=== PATIENT | male | born 1955 | race Caucasian/White ===

== ENCOUNTER 2017-04-15 15:53 | Emergency (ER) | payer OTHER, MEDICARE ==
[~2017-04-15] VITALS: Ht 175.3 cm; Wt 120.0 kg
[~2017-04-15 15:53] MED LIST: AMARYL2 MG PO; AMITRIPTYLIN25 MG OR; ASPIRINCHW 81MG PO; BABY ASPIRIN81 MG OR; BACTRIM DS1 TAB PO; BENTYL10 MG PO; C-Q 10 PO; CIPRO500 MG PO; DICYCLOMINE10 MG PO; FLAGYL500 MG OR; ISOSORB MONO30 MG OR; ISOSORB MONO30 MG PO; LASIX 40 MG TAB40 MG PO; LEVAQUIN750 MG PO; LISINOPRIL10 MG PO; LORTAB 5/3255 MG PO; LORTAB5 PO; MEDDOSEPAK PO; METFORMIN500 M1 PO; METO50TA52 PO; PERCOCET 5/325M1 TAB OR; PLAVIX75 MG PO; POT CHLORIDE20 ME3 PO; SAW PALMETT3 PO; ZOCOR20 M1 PO; ZOCOR40 MG OR; ZOFRAN4 M1 OR; ZOFRAN4 M1 PO
[2017-04-15] MEDS ORDERED: ULTRAM50 M1 PO (17:20)
[2017-04-15 17:35] VITALS: BP 184/94
== END 2017-04-15 17:35 | disposition home or self-care (01) | DRG 552 ==
LOC: ED 15:53
DX: S16.1XXA Strain of muscle, fascia and tendon at neck level, initial encounter (principal); S20.211A Contusion of right front wall of thorax, initial encounter; S20.212A Contusion of left front wall of thorax, initial encounter; V53.5XXA Driver of pick-up truck or van injured in collision with car, pick-up truck or van in traffic accident, initial encounter; Y92.414 Local residential or business street as the place of occurrence of the external cause

== ENCOUNTER 2025-01-28 08:36 | Emergency (ER) | payer MEDICARE ==
[2025-01-28] VITALS (47 sets, daily range): BP systolic 86–147; BP diastolic 52–101
[~2025-01-28] VITALS: Ht 175.3 cm; Wt 82.8 kg
[~2025-01-28 08:36] MED LIST changes: +ULTRAM50 M1 PO
[2025-01-28] MEDS ORDERED: ASPIRIN 81 MG/TAB PO ONE (08:50)
[2025-01-28] MEDS ORDERED: NITROGLYCERIN 0.4 MG/TAB SL ONE ×2 (08:50→09:20)
[2025-01-28] MEDS ORDERED: METOPROL TAR25 MG PO (08:59)
[2025-01-28] MEDS ORDERED: SOAANZ20 MG PO (09:00)
[2025-01-28] MEDS ORDERED: SPIRONOLACT25 MG PO (09:01)
[2025-01-28] MEDS ORDERED: SODIUM CHLORIDE 0.9% 250 ML IV PRN (09:20)
[2025-01-28] MEDS ORDERED: NITROGLYCERIN IN D5W 250 ML IV ONE (09:20)
[2025-01-28] MEDS ORDERED: SODIUM CHLORIDE 0.9% 1,000 ML IV ONE (09:25)
[2025-01-28 09:42] LABS: BASO% 1.1 % (0-3); EOS% 0.9 % (0-8); HEMATOCRIT 40.4 % (39.0-50.0); HEMOGLOBIN 13.8 g/dl (14.0-18.0); IMMATURE GRANULOCYTES 0.2 % (0.0-5.0); MEAN CORPUSCULAR HGB 28.8 pG CALC (26.0-32.0); MEAN CORPUSCULAR HGB CONC 34.2 g/dL CAL (32.0-36.0); MONO% 7.1 % (2-13); NEUT# 4.19 thou/uL (1.82-7.42); NEUT% 75.7 % (42-76); RED BLOOD COUNT 4.79 mill/uL (4.70-6.10); RED CELL DISTRI WIDTH 13.2 % (11.5-15.5)
[2025-01-28 09:45] LABS: MEAN CELL VOLUME 84.3 fL CALC (80.0-100.0)
[2025-01-28 10:01] LABS: ALBUMIN 4.1 g/dL (3.2-5.0); BILIRUBIN, TOTAL 0.9 mg/dL (0.2-1.3); CREATININE 0.7 mg/dL (0.7-1.3); POTASSIUM 3.6 mmol/l (3.5-5.1); TOTAL PROTEIN 7.6 g/dL (6.3-8.2)
[2025-01-28] MEDS ORDERED: Heparin SODIUM (Porcine) 5,000 UNITS/ML SDV IV ONE ×2 (10:20→10:35)
[2025-01-28] MEDS ORDERED: Heparin SODIUM (Porcine) 500 ML IV ONE (10:20)
== END 2025-01-28 11:47 | disposition short-term general hospital (02) ==
LOC: ED 08:36
PROVIDERS: Family Medicine
DX: I21.4 Non-ST elevation (NSTEMI) myocardial infarction (principal); I10 Essential (primary) hypertension; E11.9 Type 2 diabetes mellitus without complications; Z95.1 Presence of aortocoronary bypass graft; Z95.0 Presence of cardiac pacemaker
CPT/HCPCS: J1644; J2305